=== PATIENT | female | born 1975 | race Caucasian/White ===

== ENCOUNTER 2017-08-11 00:30 | Emergency (ER) | payer OTHER ==
[~2017-08-11] VITALS: Ht 160 cm; Wt 68.2 kg
[2017-08-11 00:32] VITALS: BP 185/128
--- NOTE | 2017-08-11 00:36 | NUR ---
PT TAKEN TO CHAIR A
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
--- NOTE | 2017-08-11 00:42 | NUR ---
Dr. Cunha evaluating patient.
[2017-08-11] MEDS ORDERED: ONDANSETRON 4 MG ODT PO ONE (00:50)
[2017-08-11] MEDS ORDERED: MORPHINE SULFATE 2 MG/ML SYR IM ONE (00:50)
[2017-08-11] MEDS ORDERED: MORPHINE SULFATE 4 MG/ML SYR ONE (00:55)
[2017-08-11 01:50] VITALS: BP 155/91
--- NOTE | 2017-08-11 01:50 | NUR ---
Patient discharged with v/s stable. Written and verbal after care instructions given and explained. Patient alert, oriented and verbalized understanding of instructions. Ambulatory with steady gait. All questions addressed prior to discharge. ID band removed. Patient advised to follow up with PMD. Rx of ULTRAM 50MG given. Patient educated on indication of medication including possible reaction and side effects. Opportunity to ask questions provided and answered. PT STATES SHE HAS BOYFRIEND WHO WILL DRIVE HER HOME.
== END 2017-08-11 01:50 | disposition home or self-care (01) ==
LOC: MED 00:30
DX: K08.89 Other specified disorders of teeth and supporting structures (principal)
CPT/HCPCS: 96372; 99283; J2270; S0119

== ENCOUNTER 2017-10-02 19:15 | Emergency (ER) | payer OTHER ==
[~2017-10-02] VITALS: Ht 157.5 cm; Wt 68.0 kg
[2017-10-02 19:16] VITALS: BP 180/121
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
--- NOTE | 2017-10-02 19:32 | NUR ---
Patient being evaluated by physician at bedside.
[2017-10-02] MEDS ORDERED: LIDOCAINE/EPI 1% 1:100000 20 ML VIAL INJ ONE (19:45)
[2017-10-02 21:49] VITALS: BP 142/99
--- NOTE | 2017-10-02 21:49 | NUR ---
Patient discharged with v/s stable. Written and verbal after care instructions given and explained. Patient alert, oriented and verbalized understanding of instructions. Ambulatory with steady gait. All questions addressed prior to discharge. ID band removed. Patient advised to follow up with PMD. Rx of NAPROSYN 500MG given. Patient educated on indication of medication including possible reaction and side effects. Opportunity to ask questions provided and answered. Addendum: 10/02/17 at 2150 by MEDND Patient discharged with v/s stable BY ER MD DR DE LA TORRE. Written and verbal after care instructions given and explained BY ER MD DR DE LA TORRE. Patient alert, oriented and verbalized understanding of instructions. Ambulatory with steady gait. All questions addressed prior to discharge BY ER MD DR DE LA TORRE. ID band removed. Patient advised to follow up with PMD. Rx of NAPROSYN 500MG given. Patient educated on indication of medication including possible reaction and side effects. Opportunity to ask questions provided and answered BY ER MD DR DE LA TORRE.
== END 2017-10-02 21:49 | disposition home or self-care (01) ==
LOC: MED 19:15
DX: S01.01XA Laceration without foreign body of scalp, initial encounter (principal); V43.52XA Car driver injured in collision with other type car in traffic accident, initial encounter; Y93.I9 Activity, other involving external motion; Y92.488 Other paved roadways as the place of occurrence of the external cause; Y99.8 Other external cause status
CPT/HCPCS: 12001; 70450; 81025; 99284; J2001

== ENCOUNTER 2023-08-12 10:01 | Emergency (ER) | payer MEDICAID ==
[~2023-08-12] VITALS: Ht 160 cm; Wt 63.0 kg
[2023-08-12 10:20] VITALS: O2SAT 99
[2023-08-12 10:22] VITALS: BP 230/157; PULSE 92; RESP 19; TEMP 98; O2SAT 99
[2023-08-12 10:49] LABS: BASOPHILS # (AUTO) 0.1 K/uL (0.00-0.22); BASOPHILS % (AUTO) 0.6 % (0.0-2.0); EOSINOPHILS # (AUTO) 0.3 K/uL (0-0.4); EOSINOPHILS % (AUTO) 2.7 % (0.0-4.0); HEMATOCRIT 34.9 % (36-48); HEMOGLOBIN 11.9 g/dL (12.0-16.0); LYMPHOCYTES # (AUTO) 1.5 K/uL (2.5-16.5); LYMPHOCYTES % (AUTO) 14.9 % (20.5-51.1); MEAN CORPUSCULAR HEMOGLOBIN 30 pg (27-31); MEAN CORPUSCULAR HGB CONC 34 g/dL (33-37); MEAN CORPUSCULAR VOLUME 88.6 fL (80-94); MONOCYTES # (AUTO) 0.5 K/uL (0.8-1.0); MONOCYTES % (AUTO) 4.6 % (1.7-9.3); NEUTROPHILS # (AUTO) 7.7 K/uL (1.8-7.7); NEUTROPHILS % (AUTO) 77.2 % (42.2-75.2); PLATELET COUNT (AUTO) 270 K/uL (140-450); RED BLOOD CELL COUNT(AUTO) 3.94 MIL/uL (4.20-5.40); RED CELL DISTRIBUTION WIDTH 14.2 % (11.6-13.7)
[2023-08-12] MEDS: LABETALOL 250 MG in DEXTROSE 5% 200 ML IV SCH (11:03)
[2023-08-12 11:10] LABS: INR 0.97 (0.8-1.2); PROTHROMBIN TIME 10.2 secs (10.8-13.4)
[2023-08-12 11:12] LABS: ALANINE AMINOTRANSFERASE 18 U/L (12-78); ALBUMIN 3.2 g/dL (3.4-5.0); ALKALINE PHOSPHATASE 96 U/L (50-136); ASPARTATE AMINOTRANSFERASE 20 U/L (15-37); BILIRUBIN,DIRECT 0.1 mg/dL (0.0-0.3); TOTAL BILIRUBIN 0.6 mg/dL (0.0-1.0)
[2023-08-12 11:21] LABS: ANION GAP 12.5 (8-16); CALCIUM 8.1 mg/dL (8.5-10.1); CREATININE 0.9 mg/dL (0.6-1.3); POTASSIUM 3.5 mmol/L (3.5-5.1)
[2023-08-12 12:44] LABS: BILIRUBIN,URINE NEGATIVE (NEGATIVE); BLOOD, URINE 1+ (NEGATIVE); COLOR,URINE YELLOW (YELLOW); LEUKOCYTE ESTERASE ,URINE NEGATIVE (NEGATIVE); PROTEIN,URINE 1+ (NEGATIVE); UGLUCOSE NEGATIVE (NEGATIVE); UROBILINOGEN,URINE 0.2 EU/dL (0.2 - 1)
[2023-08-12] MEDS ORDERED: NICARDIPINE HYDROCHLORIDE 25 MG in NACL 0.9% 240 ML IV ONE (12:55)
[2023-08-12 12:57] LABS: APPEARANCE,URINE CLEAR (CLEAR); BACTERIA,URINE 1+ /HPF (None Seen); NITRITE, URINE POSITIVE (NEGATIVE); RBC,URINE 0-5 /HPF (0-5); SQUAMOUS EPITHELIAL CELL,UR 0-3 (FEW) /LPF (0-3 (FEW)); WBC,URINE 0-5 /HPF (0-5)
[2023-08-12 12:58] VITALS: BP 125/89; PULSE 56; RESP 16; TEMP 97.9; O2SAT 98
[2023-08-12] MEDS: NICARDIPINE HYDROCHLORIDE 25 MG in NACL 0.9% 240 ML IV SCH (13:10)
== END 2023-08-12 12:58 | disposition short-term general hospital (02) ==
LOC: MED 10:01
DX: I61.8 Other nontraumatic intracerebral hemorrhage (principal); R53.1 Weakness; R47.81 Slurred speech; Z79.899 Other long term (current) drug therapy
CPT/HCPCS: 36415; 70450; 70496; 70498; 71045; 80048; 80076; 81001; 82140; 82948; 84484; 85025; 85610; 85730; 86886; 86900; 86901; 87086; 93005; 96365; 96367; 99285; J3490; J7030; J7060; Q9967